=== PATIENT | female | born 1950 | race Caucasian/White ===

== ENCOUNTER 2021-09-04 17:12 | Inpatient (IN) | payer MEDICAID, SELFPAY ==
[2021-09-04] VITALS (28 sets, daily range): BP systolic 108–162; BP diastolic 54–102; PULSE 66–92; RESP 15–34; TEMP 36.3–36.6; O2SAT 96–100; BMI 21.3
--- NOTE | ~2021-09-04 | XR_ITS ---
XR chest 2V 09/04/2021 17:44 Indication: Left chest pain for 2 weeks Procedure: 2 view chest Comparison: No prior studies for comparison. Findings: There is bibasilar airspace disease, compatible with pneumonia. No significant effusion. He art size normal. No edema or pneumothorax. No acute osseous abnormality. Impression: 1: Bibasilar pneumonia. Reviewed, dictated and finalized at location A. Impression: 1: Bibasilar pneumonia.
--- NOTE | 2021-09-04 17:26 | ECG_ITS ---
Measurements Intervals [place] Rate: 81 P: 51 [place]: 140 QRS: 81 QRSD: 101 T: 3 QT: 356 QTc: 415 Interpretive Statements SINUS RHYTHM HIGH LATERAL INFARCT, AGE INDETERMINATE BORDERLINE ST-T WAVE ABNORMALITY- ANT/INF LEADS BASELINE ARTIFACT- I, II, III, AVF, V3-V6 ABNORMAL ECG Electronically Signed On 09-04-2021 20:39:50 CDT by Hair Vicente D.O.
--- NOTE | 2021-09-04 17:28 | ED.CHESTPAIN ---
HPI - Chest Pain General Chief Complaint: Chest Pain Stated Complaint: chest pain Time Seen by Provider: 09/04/21 17:18 Source: patient History of Present Illness HPI narrative: Patient presents with chest pain. Reports her symptoms started around 430 when she was eating chicken she had associated emesis. She reports continued chest pain since onset and describes it as sharp no radiation no clear aggravating or alleviating symptoms no associated with deep inspiration or with physical activity. She no longer has nausea she denies any shortness of breath fevers, cough, congestion she denies any lower extremity edema she denies prior cardiac history denies history of blood clots. Related Data Allergies Allergy/AdvReac Type Severity Reaction Status Date / Time No Known Allergies Allergy Verified 09/04/21 18:37 Review of Systems Review of Systems: CONSTITUTIONAL: Denies fever, chills, or sweats. EYES: Denies visual changes, redness, or discharge. ENT: Denies rhinorrhea, congestion, sore throat, or otalgia. CARDIOVASCULAR: Denies palpitations, or edema. RESPIRATORY: Denies cough or dyspnea. GASTROINTESTINAL: Denies abdominal pain, nausea, vomiting, or diarrhea. GENITOURINARY: Denies dysuria or hematuria. SKIN: Denies rash or itching. MUSCULOSKELETAL: Denies back pain, joint pain, or myalgia. NEUROLOGIC: Denies headache, numbness, dizziness, or weakness. PSYCHIATRIC: Denies anxiety or depression. All systems reviewed & are unremarkable except as noted in HPI and below PMFSH Past Medical History Medical History (Updated 09/04/21 @ 18:53 by Hector Villagran MD) Elevated cholesterol Hypothyroid Social History Social History (Updated 09/04/21 @ 17:31 by Hector Villagran MD) Smoking status: Never smoker Substance use: never Exam Narrative: GENERAL: Well-appearing, well-nourished, and in no acute distress. HEAD: Normocephalic, atraumatic. EYES: PERRLA and EOMI. ENT: Nares clear, no rhinorrhea or epistaxis. Mucous membranes moist. NECK: Supple. No masses. No JVD CHEST: Crackles in the bilateral bases HEART: Regular rate and rhythm. No murmur heard. Normal peripheral pulses. ABDOMEN: Soft, nontender, nondistended, normal active bowel sounds. EXTREMITIES: Normal range of motion. No edema. SKIN: Warm, dry, no rash. NEURO: No focal deficits. Alert and oriented x3. PSYCH: Normal mood and affect. Course Reevaluation(s) Reevaluation #1: Test results returned with elevated troponin. Given patient's chest pain primary concern is for NSTEMI patient will be admitted for further evaluation. She does report her pain has been improving since being in the ER. Date: 09/04/21 Time: 18:42 Vital Signs Vital signs: Vital Signs Pulse Oximetry 98 09/04/21 17:20 Temperature 36.3 C L 09/04/21 17:34 Pulse Rate 81 09/04/21 19:02 Respiratory Rate 24 H 09/04/21 19:02 Blood Pressure 127/74 09/04/21 19:02 Pulse Oximetry 100 09/04/21 18:02 MDM - Chest Pain MDM Narrative Medical decision making narrative: Patient presents with sharp chest pain after eating chicken. Patient overall looks clinically well. Exam showed crackles at the base of the bilateral lungs otherwise unremarkable there is no significant lower extremity edema. Labs and imaging obtained. Labs show elevated troponin slight elevation in BNP chest x-ray showed bibasilar pneumonia. EKG did not show acute ischemia. Given patient labs and imaging abnormalities she will be admitted to the hospitalist team cardiology following along for troponin trending the additional diagnostic testing/treatment. Patient is comfortable with the inpatient plan. Lab Data Result diagrams: 09/04/21 17:51 09/04/21 17:51 Labs: Lab Results 09/04/21 09/04/21 09/04/21 Range/Units 17:51 17:51 17:51 WBC 6.0 (4.5-10.0) K/mm3 RBC 4.38 (4.2-5.4) M/mm3 Hgb 14.1 (12.0-15.0) g/dL Hct 43.5 (37.0-47.0) % MCV 99.3 (80-10
[2021-09-04] MEDS: LIDOCAINE HCL 2% VISC SOLN 15 ML UDC 20 ML PO (18:01)
[2021-09-04] MEDS: MAG HYDROX/AL HYDROX/SIMETH 30 ML UDC PO (18:02)
[2021-09-04 18:04] LABS: Basophils Percent Auto 0.7 % (0.2-1.2); Eosinophils Absolute Auto 0.6 K/mm3 (0-0.3); Eosinophils Percent Auto 10.1 % (0-4.4); Hematocrit 43.5 % (37.0-47.0); Hemoglobin 14.1 g/dL (12.0-15.0); Immature Granulocyte Absolute 0.02 K/mm3 (0.00-0.031); Immature Granulocyte Percent A 0.3 % (0-0.5); Lymphocytes Absolute Auto 2.98 K/mm3 (0.9-3.2); Lymphocytes Percent Auto 49.9 % (18.3-44.2); Mean Corpuscular HGB Conc 32.4 g/dl (32-36); Mean Corpuscular Hemoglobin 32.2 pg (26-34); Mean Corpuscular Volume 99.3 fl (80-100); Mean Platelet Volume 9.3 fl (7.4-10.4); Monocytes Absolute Auto 0.7 K/mm3 (0.1-0.6); Monocytes Percent Auto 11.2 % (2.6-8.5); Neutrophils Absolute Auto 1.7 K/mm3 (1.3-6.7); Neutrophils Percent Auto 27.8 % (45.5-73.1); Platelet Count Result 229 k/mm3 (150-375); Red Blood Count 4.38 M/mm3 (4.2-5.4); Red Cell Distribution Width 14.2 % (11.5-14.5)
--- NOTE | 2021-09-04 18:07 | PC.NURSE ---
Pt unable to give urine sample at this time. Pt informed of the importance of getting urine.
[2021-09-04 18:16] LABS: Alanine Aminotransferase 12 U/L (4-35); Albumin Level 3.6 g/dL (3.5-5.1); Alkaline Phosphatase 78 U/L (38-126); Anion Gap 9 mmol/L (8-16); Aspartate Amino Transferase 31 U/L (14-36); Bilirubin,Total 0.5 mg/dL (0.2-1.3); Blood Urea Nitrogen 10 mg/dL (7-17); Calcium 8.8 mg/dL (8.4-10.2); Carbon Dioxide 21 mmol/L (22-30); Chloride 107 mmol/L (98-107); D Dimer 0.45 ug/mL (<0.48); Estimated CRCL calculation 44 ml/min; Estimated Glomerular Filt Rate > 60; Glucose 105 mg/dL (65-110); Potassium 4.1 mmol/L (3.4-5.0); Sodium 137 mmol/L (137-145)
[2021-09-04 18:30] LABS: NT Pro B Type Natriuretic Pept 306 pg/mL (5-100); Troponin I 0.117 ng/mL (0.000-0.034)
[2021-09-04] MEDS: ASPIRIN 81 MG CHEWABLE TABLET 324 MG PO (18:41)
--- NOTE | 2021-09-04 18:46 | ECG_ITS ---
Measurements Intervals [place] Rate: 79 P: 46 [place]: 157 QRS: 93 QRSD: 100 T: 29 QT: 374 QTc: 430 Interpretive Statements SINUS RHYTHM HIGH LATERAL INFARCT, AGE INDETERMINATE BORDERLINE ST-T WAVE ABNORMALITY- ANT/INF LEADS BASELINE ARTIFACT- I, AVR, V3-V6 ABNORMAL ECG Electronically Signed On 09-04-2021 20:37:52 CDT by Hair Vicente D.O.
[2021-09-04] MEDS: ENOXAPARIN 80 MG/0.8 ML SYRINGE 65 MG SUB-Q (19:00)
--- NOTE | 2021-09-04 19:42 | PC.NURSE ---
Report received from ALLEN De Jesus.
[2021-09-04 19:47] LABS: Lactic Acid Reflex 1.6 mmol/L (0.7-2.1)
--- NOTE | 2021-09-04 19:57 | ADMGEN ---
This patient, Sommer Guo, was admitted to [facility] on 09/04/21 at 1955. Patient/family oriented to hospital policies and general routines including ID bracelet, bed and alarms, visiting hours, pain management, procedures, bathroom and other care routines, personal items, smoking policy, room service/diet, and visiting hours. Information on how to activate the Rapid Response Team has been discussed. Patient/Family are encouraged to report perceived risks to care and to ask questions if they do not understand what they are told or what they should do.
[2021-09-04] MEDS: SODIUM CHLORIDE 0.9% IV 1,000 ML 125 ML IV CONT (20:53)
--- NOTE | 2021-09-04 22:35 | ECG_ITS ---
Measurements Intervals [place] Rate: 73 P: 126 [place]: 160 QRS: 84 QRSD: 98 T: 96 QT: 412 QTc: 456 Interpretive Statements SINUS RHYTHM CONSIDER LIMB LEAD REVERSAL INCOMPLETE RIGHT BUNDLE BRANCH BLOCK BASELINE ARTIFACT- I, III, AVR, AVL BORDERLINE ECG Electronically Signed On 09-05-2021 7:47:12 CDT by Hair Vicente D.O.
[2021-09-04 23:33] LABS: Add Urine Microscopic? YES; Appearance Urine Clear (Clear); Bilirubin Urine Negative (Negative); Blood Urine Negative (Negative); Color Urine Straw (Yellow); Glucose Urine UA Negative (Negative); Ketones Urine Negative (Negative); Leukocyte Esterase Ur Trace LEU/UL (Negative); Nitrate Urine Negative (Negative); Protein Urine Negative (Negative); RBC Urine 0-2 /hpf (0-2); Squamous Epithelial Cell Urine Rare /hpf (Few); Urobilinogen Urine Negative mg/dL (<2.0); WBC Urine 0-3 /hpf
[2021-09-04 23:34] LABS: Specific Grav Ur 1.002 (1.001-1.035)
--- NOTE | 2021-09-04 23:40 | PC.NURSE ---
[id number] Dr. Hall request this RN to notify Dr. Saleem of elevated troponin.
--- NOTE | 2021-09-04 23:58 | PM.IMHP ---
H&P: HPI History of Present Illness Date/Time: 09/04/21 23:58 Chief Complaint: Chest pain. Narrative: This is a 70-year-old female with past medical history significant for dyslipidemia, hypothyroidism. Patient presented to the emergency room due to chest pain while at dinner patient has been her usual state of health up until this episode she denies any chest pain with rest or exertion, no PND, no orthopnea, no leg swelling, no dizziness, no lightheadedness, no syncope or near syncope, no fevers, no rigors ,no chills, no cough, no sputum production, no claudication, no nausea, no vomiting, no abdominal pain, no diarrhea. Patient says that she had been doing well all day long had been doing her usual activities when she suddenly developed this chest pain now is localized to the right upper chest nonradiating not aggravated by deep inspiration non reproducible. Preliminary workup has been significant for chest x-ray with bilateral lung infiltrate and an elevated troponin ECG with no acute changes. Patient has been admitted for further management evaluation and treatment. Review of Systems Review of Systems: Chest pain Constitutional: Constitutional: Denies chills, Denies fatigue, Denies fever(s), Denies lethargy, Denies malaise, Denies night sweats, Denies poor appetite and Denies weakness Eyes: Eyes: Denies blurry vision, Denies change in vision, Denies seeing flashes and Denies spots in vision ENT: Denies dysphagia, Denies vertigo, Denies dizziness, Denies nasal congestion, Denies nasal discharge, Denies nasal obstruction and Denies odynophagia Cardiovascular: Cardiovascular: Reports chest pain, Reports chest pain at rest, Denies chest pain with activity, Denies diaphoresis, Denies edema, Denies irregular heart rhythm, Denies claudication, Denies leg edema, Denies lightheadedness, Denies radiating jaw, neck or arm pain, Denies palpitations, Denies dyspnea, Denies dyspnea on exertion, Denies orthopnea and Denies paroxysmal nocturnal dyspnea Respiratory: Respiratory: Denies chest congestion, Denies cough, Denies excessive phlegm production, Denies dyspnea and Denies wheezing Gastrointestinal: Gastrointestinal: Denies abdominal pain, Denies dyspepsia, Denies heartburn, Denies diarrhea, Denies nausea and Denies vomiting Genitourinary: Genitourinary: Denies dysuria and Denies flank pain Musculoskeletal: Musculoskeletal: Denies arthralgias, Denies joint swelling and Denies muscle weakness Integumentary/Breasts: Skin/Breast: Denies rash and Denies wounds Neurologic: Denies vertigo, Denies syncope, Denies focal weakness and Denies Sensory deficit (Neuro) Psychiatric: Psychiatric: Reports no additional psychiatric complaints and Reports as per HPI Endocrine: Endocrine: Reports no additional endocrine complaints and Reports as per HPI Hematologic/Lymphatic: Hematologic/Lymphatic: Reports no additional hematologic/lymphatic complaints and Reports as per HPI Allergic/Immunologic: Allergic/Immunologic: Reports no additional allergic/immunologic complaints and Reports as per HPI [facility] Past Medical History Medical History (Updated 09/04/21 @ 18:53 by Hector Villagran MD) Elevated cholesterol Hypothyroid Family History Family History (Updated 09/04/21 @ 20:22 by Wendie Choi RN) Father Acute myocardial infarction Cerebrovascular accident Hypertension Sibling Colon cancer Congestive heart failure Hypertension Social History Social History (Updated 09/04/21 @ 17:31 by Hector Villagran MD) Smoking status: Never smoker Second hand tobacco smoke exposure: Yes Alcohol intake: never Substance use: never Spiritual care concerns: No Meds Home Medications and Allergies Home Medications Medication Instructions Recorded Confirmed Type Systane Ultra 1 drp EACH EYE DAILY 09/04/21 09/04/21 History carboxymethylcellulose sodium 1 drp EACH EYE 4-6XD PRN 09/04/21 09/04/21 History [Refresh Tears] levothyroxine
[2021-09-05] VITALS (35 sets, daily range): BP systolic 106–144; BP diastolic 49–84; PULSE 48–72; RESP 10–20; TEMP 35.8–36.6; O2SAT 95–100
[2021-09-05] MEDS: LEVOTHYROXINE SODIUM 50 MCG TABLET PO (06:57)
[2021-09-05] MEDS: SODIUM CHLORIDE 0.9% IV 1,000 ML 65 ML IV CONT (09:39)
--- NOTE | 2021-09-05 09:57 | PM.CNCAR ---
Assessment and Plan Additional Plan 70-year-old lady with: Episode of chest discomfort yesterday evening while at home occurring in the postprandial setting. She reasonably thought this was dyspepsia but has had a significant troponin rise indicative of ACS/non ST elevation MN. She has stable asymptomatic at this time and being treated with aspirin and statins. She has not been given a beta-jourdan. Had a long discussion with the patient about the nature of this be situation and recommended performing a coronary angiogram. She understands the discussion and has no questions. At this time she is wishing to discuss this with her family/daughter who will be visiting her later before she decides if she wants to proceed with this sort of an evaluation. In the meantime I will start her on some metoprolol. If she makes a decision that she wants to perform have an angiogram performed early enough in the day will get it done today if she does not make a decision until into this afternoon the procedure will probably not happen until tomorrow morning. Obviously if she declines then we will treat her medically Kvng Taveras MD [facility] History of Present Illness History of Present Illness Consult date/time: 09/05/21 09:57 Consult reason: chest pain Reason For Visit: NSTEMI Narrative: This is a 70-year-old woman I am seeing this morning at the request of the hospitalist with the setting of a apparent non ST-elevation MN. patient is not known to have any cardiac problems prior to this she is a lady who lives alone in her own apartment in yesterday late afternoon/early evening she began to experience some chest pain shortly after she ate some chicken for dinner. She says she felt like she was having indigestion which she has had off and on in the past but it was more severe and would go away with antacids. She notified her family and she was brought to the emergency room for evaluation. In the emergency department she was relatively asymptomatic she states the episode of pain lasted altogether about 30 minutes or so. She was admitted to the IMU for observation after after this event. Her 2nd and 3rd troponin levels did rise up moderately leading to the diagnosis of acute coronary syndrome and prompting us to see her in consultation this morning. She is a lady who does not perform any regular structured exercise but she does lead a normally active lifestyle and states that she does not have any exertional symptoms of chest pain pressure or heaviness she denies any orthopnea PND or edema she has no palpitations and has never experienced a syncopal episode. Review of Systems Constitutional: Constitutional: Reports no additional constitutional complaints Eyes: Eyes: Reports no additional eye complaints ENT: Reports system reviewed and no additional complaints, except as documented Cardiovascular: Cardiovascular: Reports as per HPI Respiratory: Respiratory: Reports no additional respiratory complaints Gastrointestinal: Gastrointestinal: Reports no additional gastrointestinal complaints Musculoskeletal: Musculoskeletal: Reports no additional musculoskeletal complaints Integumentary/Breasts: Skin/Breast: Reports system reviewed and no additional complaints, except as docu Neurologic: Reports system reviewed and no additional complaints, except as documented Endocrine: Endocrine: Reports no additional endocrine complaints Hematologic/Lymphatic: Hematologic/Lymphatic: Reports no additional hematologic/lymphatic complaints Allergic/Immunologic: Allergic/Immunologic: Reports no additional allergic/immunologic complaints [facility] Past Medical History Medical History (Updated 09/04/21 @ 18:53 by Hector Villagran MD) Elevated cholesterol Hypothyroid Family History Family History (Updated 09/04/21 @ 20:22 by Wendie Choi RN) Father Acute myocardial infarction Cerebrovascular accident Hypertension Sibling Colon cancer Conges
[2021-09-05] MEDS: SIMVASTATIN 20 MG TABLET 40 MG PO (10:11)
[2021-09-05] MEDS: TOPIRAMATE 25 MG TABLET PO (10:12)
[2021-09-05] MEDS: ASPIRIN 81 MG CHEWABLE TABLET PO (10:13)
[2021-09-05] MEDS: METOPROLOL TARTRATE 25 MG TABLET PO ×2 (10:18→20:48)
--- NOTE | 2021-09-05 10:55 | PM.IMPN ---
Progress Note: A&P Assessment and Plan (1) Non-ST elevation PR (NSTEMI): Code(s): I21.4 - Non-ST elevation (NSTEMI) myocardial infarction Status: Acute Assessment and Plan: Atypical chest pain but presented with elevated troponins as high as 3.3. Cardiology was consulted and would like to perform a cardiac catheterization. Patient is NPO at this time awaiting cardiac catheterization. On arrival she did receive aspirin 324 mg plus an 81 mg aspirin. She was given 1 dose of Lovenox. She was admitted to the IMU for further evaluation and telemetry monitoring Appreciate cardiology's input. (2) Chest pain: Qualifiers: Chest pain type: unspecified Qualified Code(s): R07.9 - Chest pain, unspecified Code(s): R07.9 - Chest pain, unspecified Status: Acute Assessment and Plan: See above (3) Pneumonia: Qualifiers: Laterality: unspecified laterality Lung location: unspecified part of lung Pneumonia type: due to unspecified organism Qualified Code(s): J18.9 - Pneumonia, unspecified organism Code(s): J18.9 - Pneumonia, unspecified organism Status: Acute Assessment and Plan: On chest x-ray it showed bibasilar pneumonia. On examination her lungs are clear. She was started on IV azithromycin and Rocephin for treatment of community-acquired pneumonia. She denies any shortness of breath or coughing. Blood cultures were taken and pending. Patient is on Zithromax Rocephin (4) HTN (hypertension): Qualifiers: Hypertension type: unspecified Qualified Code(s): I10 - Essential (primary) hypertension Code(s): I10 - Essential (primary) hypertension Status: Acute Assessment and Plan: Blood pressure stable 122/57. Continue home meds Continue to monitor (5) Hypothyroid: Code(s): E03.9 - Hypothyroidism, unspecified Status: Acute Assessment and Plan: Continue home med Continue to monitor (6) Elevated cholesterol: Code(s): E78.00 - Pure hypercholesterolemia, unspecified Status: Acute Assessment and Plan: Continue statin Time Spent With Patient Time with patient: 25 - 35 minutes Subjective Date/time seen: 09/05/21 10:55 Interval history: Date of service 09/05/2021: Patient reports feeling well today. She did have chest pain prior to arrival which she described as burning in nature to her mid sternal chest and upper chest with radiation to her upper back. At the time of the pain she was eating some chicken. Earlier that day she had been walking around grocery shop in, but denied any dyspnea on exertion, chest pain with exertion. She does report having heartburn issues in the past but denies any similar symptoms like she did prior to arrival. Denies any more chest pain, shortness breath, cough, fever, chills, nausea, vomiting, abdominal pain, leg swelling, calf pain, or any other symptoms at this time. Review of Systems Review of Systems: All systems reviewed & are unremarkable except as noted in HPI and below Exam Narrative: General: 70-year-old woman laying flat in bed. Appears comfortable. In no acute distress. Skin: No jaundice or cyanosis. Good skin turgor. Neck: Full range of motion. Supple. Respiratory: Lungs are clear to auscultation bilaterally. No wheezing, rales or rhonchi. No bony chest wall tenderness. Cardiovascular: The heart has a regular rate and rhythm without murmur. Telemetry shows normal sinus rhythm with a heart rate of 78 beats per minute. Few PVCs. No acute arrhythmia noted. Lower extremities: No lower extremity edema. Distal pulses are easily palpated. No calf tenderness to pal
--- NOTE | 2021-09-05 13:15 | WPDCARDPROC ---
Cardiac Cath Procedure Note Date of procedure:: 09/05/21 Performing physician:: Kvng Taveras MD Indication:: Non ST-elevation PA Brief clinical history:: this is a 70-year-old woman without previous knowledge of coronary disease. She had chest pain after eating a meal last evening after which she came to the emergency room where a significant troponin rise was documented. Electrocardiogram did not show any obvious ST or T abnormalities of AMI. In this setting an angiogram has been recommended. Procedure Procedure performed:: Left ventriculogram coronary angiogram Sedation/Medication given:: fentanyl 25 no Versed 1 mg case start time 1241 p.m. case end time 1:09 p.m. sedation provided by Perry Cheung RN, trained observer Access site:: right femoral artery Estimated blood loss:: 10-15 cc Procedure note:: patient was brought to the cardiac catheterization lab in the postabsorptive state the right femoral triangle was prepared and draped in the usual fashion. Anesthesia was provided with 1% lidocaine infiltrated locally. Using the modified Seldinger technique a 5 [place] sheath was placed into the right femoral artery. After this left heart catheterization took place. I used a 5 [place] angled pigtail catheter to document left-sided hemodynamics and to inject LV g in the 30 degree PALACIOS projection. After this I used a standard JR4 catheter to attempt to engage the RCA. I then engaged using a WRP catheter. Following this the left coronary artery was engaged and injected using a standard 5 [place] FL4 catheter. Following this cineangiograms were carefully reviewed and the case was terminated. The patient was taken to the holding area for manual sheath removal and post cath recovery. The procedure was well tolerated there were no apparent complications and she left the tutorial laboratory supervisor with no evidence of a groin hematoma. Findings:: Hemodynamics: The central aortic pressure is 1 26 over 58 left ventricle 126 over 10 end-diastolic pressure 18 there is no gradient on pullback across the aortic valve. Left ventricle: The anterior wall the left ventricle is akinetic. The remainder of the LV contracts well the global ejection fraction appears to be about 45%. The left main coronary artery is medium in caliber and is somewhat calcified. There is about 50% stenosis in the midportion of the left main. The left anterior descending is a medium caliber vessel extending down to around the apex. The ostial segment of the LAD has a hazy area of atherosclerosis which in most views appears to be not significantly stenosed. In the [place] cranial projection there appears to be a discrete lesion in this segment. In the midportion of the LAD there is a 70-80% stenosis. Septal perforating complex has an ostial 90% stenosis. The circumflex is a medium caliber artery giving rise to the marginal branches and a posterior branch. Circumflex is also calcified. There is 70-80% stenosis at the origin of the major obtuse marginal branch. The posterior AV groove portion of the circumflex after this OM originates has about 70% stenosis as well. The right coronary artery is small in caliber and codominant terminating in an RPDA. There is high-grade 80-90% ostial stenosis of the RCA followed by a long area of atherosclerotic stenosis in 1st the artery about 80%. Distal to this the trunk of the Right coronary and RPDA are angiographically small but free of significant disease. Conclusion:: 1. three-vessel coronary artery disease involving eccentric but concerning ostial stenosis of the LAD, moderate 80% stenosis of the mid LAD, significant proximal stenosis of the largest OM branch and of the posterior circumflex trunk. High-grade stenosis of the codominant right coronary ostium into the 1st portion of the RCA. 2. Anterior wall akinesis likely representing stunned myocardium as the patient has no anterior Q-waves. 3. Given this comple
--- NOTE | 2021-09-05 16:00 | PM.TDS ---
Transfer Discharge Sum: Prov Provider Date of admission: 09/05/21 09:20 Primary care physician: PHYSICIAN NOT ON STAFF Admitting clinician: Sharifa Guy MD Consults: 09/04/21 Consult to Physician Routine Comment: md is aware of the pt. Consulting Provider: Kvng Taveras gas maker/MD group to consult: Cardiology Reason for consultation: NSTEMI Has provider been notified: Yes 09/04/21 18:55 Consult to Physician Routine Comment: Consulting Provider: Tasia Saleem Reason for consultation: NSTEMI Has provider been notified: Yes DS: Admitting Diagnosis Discharge Date 09/05/21 Admitting Diagnosis Chest pain DS: Discharge Diagnosis Discharge Diagnosis (1) Non-ST elevation ID (NSTEMI): Code(s): I21.4 - Non-ST elevation (NSTEMI) myocardial infarction Status: Acute Assessment and Plan: The patient is a 70-year-old woman with a history of high cholesterol, hypothyroidism, who presented to the emergency room with sternal chest pain and radiation to her upper back which began while she was eating chicken. She states earlier today she had been shopping with her family, denies any chest pain, dyspnea with exertion. The pain would not go away after eating and she came to the emergency room for further evaluation. Initial vitals showed elevated blood pressure 162/101, heart rate 76, respiratory rate 15, afebrile, normal oxygenation 98% on room air. Initial labs showed normal CBC with elevated lymphocytes, normal D-dimer. CMP normal. Elevated troponin at 0.177, than elevated more to 3.83. BNP slightly elevated at 306. Urinalysis showed trace leukocyte esterase, no signs of UTI. Chest x-ray showed bibasilar pneumonia. The patient was admitted to the hospital with elevated troponins with a consult to Cardiology in placed NPO. She was also started on IV azithromycin and Rocephin for possible community-acquired pneumonia as seen on x-ray. Cardiology Dr. Taveras evaluated the patient who decided to perform a cardiac catheterization which showed three-vessel coronary artery disease involving eccentric but concerning ostial stenosis of the LAD, moderate 80% stenosis of the mid LAD, significant proximal stenosis of the largest OM branch and of the posterior circumflex trunk. High-grade stenosis of the codominant right coronary ostium into the 1st portion of the RCA. Anterior wall akinesis likely representing stunned myocardium as the patient has no anterior Q-waves. Given this complex anatomy involving significant stenosis of the ostial and proximal LAD surgical myocardial revascularization will be considered optimal. Will discuss with the patient and family about transfer to CV surgery facility. A accounts officer talked to the patient and family who agreed with transfer to [facility] He spoke to a [facility] Physician Dr. Dsouza Cardiothoracic surgeon who accepts the patient in transfer. We are currently waiting for bed availability and then she will be transferred. (2) Chest pain: Qualifiers: Chest pain type: unspecified Qualified Code(s): R07.9 - Chest pain, unspecified Code(s): R07.9 - Chest pain, unspecified Status: Acute Assessment and Plan: See above (3) Pneumonia: Qualifiers: Laterality: unspecified laterality Lung location: unspecified part of lung Pneumonia type: due to unspecified organism Qualified Code(s): J18.9 - Pneumonia, unspecified organism Code(s): J18.9 - Pneumonia, unspecified organism Status: Acute Assessment and Plan: On chest x-ray it showed bibasilar pneumonia. On examination her lungs are clear. She was started on IV azithromycin and Rocephin for treatment of community-acquired pneumonia. She denies any shortness of breath or coughing. Blood cultures were taken and pending. Patient is o
--- NOTE | 2021-09-05 17:15 | PC.NURSE ---
Cardiop[facility] Services flyer was given to patient.
[2021-09-05] MEDS: SODIUM CHLORIDE 0.9% IV 1,000 ML 125 ML IV CONT (18:49)
[2021-09-06] VITALS: PULSE 50; RESP 16; O2SAT 99
== END 2021-09-06 01:22 | disposition short-term general hospital (02) | DRG 190 ==
LOC: ANHED 18:53 → ANHIMU 20:01
PROVIDERS: Specialist; Admitting Provider Internal Medicine; Emergency Provider Emergency Medicine; Visit Provider Internal Medicine
PROC: 4A023N7 Measurement of Cardiac Sampling and Pressure, Left Heart, Percutaneous Approach (ICD-10-PCS; CPT 93452; principal; 2021-09-05 13:00)
DX: I21.4 Non-ST elevation (NSTEMI) myocardial infarction (principal); J18.9 Pneumonia, unspecified organism; I25.10 Atherosclerotic heart disease of native coronary artery without angina pectoris; E03.9 Hypothyroidism, unspecified; I10 Essential (primary) hypertension; E78.00 Pure hypercholesterolemia, unspecified; Z79.899 Other long term (current) drug therapy
CPT/HCPCS: 36415; 71046; 80053; 81001; 83605; 83880; 84484; 85025; 85380; 87040; 93005; 93458; 96361; 96365; 96372; 96375; 99285; A9270; C1887; C1894; G0378; J0456; J0696; J1644; J1650; J2250; J2405; J3010; J7030; J7040